=== PATIENT | male | born 2000 | race Caucasian/White ===

== ENCOUNTER 2020-03-06 11:37 | Emergency (ER) | payer MEDICAID ==
[~2020-03-06] VITALS: Ht 170.2 cm; Wt 65.8 kg
[~2020-03-06 11:37] MED LIST: AMOXICILLI400 MG/5 M PO; AUGMENTIN400 MG/52 PO; CLONIDINE; CONCERTA; CONCERTA36 M1 PO; DEPAKOTE; RISPERDAL; RITALIN; SEROQUEL
[2020-03-06] MEDS ORDERED: WELLBUTRIN SR100 MG (12:15)
[2020-03-06] MEDS ORDERED: TRAZODONE HCL100 MG PO (12:16)
[2020-03-06] MEDS ORDERED: VENTOLIN HFA 1818 GM INH (12:44)
[2020-03-06] MEDS ORDERED: ZPAK PO (12:44)
[2020-03-06 13:19] VITALS: BP 103/65
== END 2020-03-06 13:20 | disposition home or self-care (01) ==
LOC: M.ERS 11:37
DX: J06.9 Acute upper respiratory infection, unspecified (principal); Z20.828 Contact with and (suspected) exposure to other viral communicable diseases